=== PATIENT | female | born 2000 | race Hispanic/Latino ===

== ENCOUNTER 2023-12-04 10:40 | Emergency (ER) | payer BC ==
[~2023-12-04] VITALS: Ht 157.5 cm; Wt 52.2 kg
[2023-12-04 10:49] VITALS: TEMP 98.6
[2023-12-04] MEDS: 0.9%NACL 1000ML 1,000 ML IV ONE (11:11)
[2023-12-04] MEDS: ONDANSETRON 4MG INJ IVP ONE (11:11)
[2023-12-04 11:20] LABS: BASOPHILS # (AUTO) 0.07 K/uL (0.00-0.20); BASOPHILS % (AUTO) 0.9 % (0.0-5.0); EOSINOPHILS # (AUTO) 0.06 K/uL (0.00-0.70); EOSINOPHILS % (AUTO) 0.8 % (0.0-8.0); HEMATOCRIT 43.1 % (36-48); IMMATURE GRANULOCYTE ABSOLUTE 0.02 K/uL (0-1); LYMPHOCYTES # (AUTO) 1.7 K/uL (1.0-4.8); LYMPHOCYTES % (AUTO) 21.1 % (21.0-51.0); MEAN CORPUSCULAR HEMOGLOBIN 27.8 pg (27.0-33.0); MEAN CORPUSCULAR HGB CONC 32.7 g/dL (32.0-36.0); MONOCYTES # (AUTO) 0.6 K/uL (0.1-1.0); MONOCYTES % (AUTO) 7.6 % (3.0-13.0); NEUTROPHILS # (AUTO) 5.6 K/uL (1.8-7.7); NEUTROPHILS % (AUTO) 69.3 % (40.0-77.0); PLATELET COUNT (AUTO) 405 K/uL (130-400); RED BLOOD CELL COUNT(AUTO) 5.07 MIL/uL (4.00-5.50); RED CELL DISTRIBUTION WIDTH 12.7 % (11.0-15.5)
[2023-12-04 11:28] LABS: AMPHET/METH SCREEN,URINE NEGATIVE (NEGATIVE); BARBITURATE SCREEN, URINE NEGATIVE (NEGATIVE); BENZODIAZEPINES SCREEN,URINE NEGATIVE (NEGATIVE); CANNABINOID SCREEN,URINE POSITIVE (NEGATIVE); COCAINE SCREEN,URINE NEGATIVE (NEGATIVE); OPIATE SCREEN,URINE NEGATIVE (NEGATIVE); PHENCYCLIDINE SCREEN,URINE NEGATIVE (NEGATIVE)
[2023-12-04 11:38] LABS: APPEARANCE,URINE CLOUDY (CLEAR); BILIRUBIN,URINE NEGATIVE (NEGATIVE); COLOR,URINE YELLOW (YELLOW); GLUCOSE, URINE (UA) NEGATIVE (NEGATIVE); KETONES,URINE 150 mg/dL (NEGATIVE); LEUKOCYTE ESTERASE ,URINE NEGATIVE Leu/uL (NEGATIVE); NITRATE,URINE NEGATIVE (NEGATIVE); OCCULT BLOOD,URINE NEGATIVE (NEGATIVE); PROTEIN,URINE 30 mg/dL (NEGATIVE); UROBILINOGEN,URINE 0.2 mg/dL (0.2-1.0)
[2023-12-04 11:41] LABS: ADD UA MICROSCOPIC YES
[2023-12-04 11:50] LABS: BACTERIA,URINE RARE /HPF (None Seen); CREATININE 0.8 mg/dL (0.5-1.0); MUCUS,URINE MOD LPF (None Seen); POTASSIUM 3.3 mmol/L (3.5-5.1); SQUAMOUS EPITHELIAL CELL,UR MANY /HPF (0-2)
[2023-12-04] MEDS: POTASSIUM BICARB/CIT AC 25 MEQ TABLET.EFF PO ONE (12:05)
[2023-12-04] MEDS ORDERED: ONDA-243 PO (12:08)
[2023-12-04] MEDS ORDERED: OMEP40CA21 PO (12:08)
[2023-12-04 12:51] VITALS: BP 103/69; PULSE 86; RESP 20; O2SAT 99
== END 2023-12-04 12:55 | disposition home or self-care (01) ==
LOC: EDH 10:40
DX: E87.6 Hypokalemia (principal); E86.0 Dehydration; R11.2 Nausea with vomiting, unspecified; F12.10 Cannabis abuse, uncomplicated
CPT/HCPCS: 99284; 96374; 96361; 80048; 80305; 85025; 81025; 36415; 81001; J7030; J2405